=== PATIENT | male | born 1975 | race Caucasian/White ===

== ENCOUNTER 2023-11-08 10:52 | Emergency (ER) | payer OTHER, SELFPAY ==
[2023-11-08 10:58] VITALS: BP 163/103
[2023-11-08 11:13] VITALS: BMI 32.8
[2023-11-08 11:36] LABS: ALT (SGPT) 31 U/L (0-50); AST (SGOT) 24 U/L (17-59); Albumin 4.3 g/dl (3.5-5.0); Alkaline Phosphatase 86 U/L (38-126); Blood Urea Nitrogen 27 mg/dl (9-20); Calcium 9.4 mg/dl (8.4-10.2); Carbon Dioxide 26 mmol/L (22-30); Chloride 104 mmol/L (98-107); Estimated Creatinine Clearance 62 ml/min; Glucose 219 mg/dl (70-99); Potassium 3.9 mmol/L (3.5-5.1); Sodium 135 mmol/L (135-145); Total Bilirubin 0.5 mg/dl (0.2-1.3); Total Protein 7.3 g/dl (6.3-8.2); eGFR 52.82
--- NOTE | 2023-11-08 11:39 | ED.GENMED ---
History of Present Illness
General
Chief Complaint: Flank Pain
Source: patient
Exam Limitations: none
Time Seen by Provider: 11/08/23 11:34
Travel History
Have you had any contact with someone who has COVID-19?: No
Do you have any symptoms of coronavirus? Fever > 100 degrees, chills, cough, shortness of breath, sore throat, loss of taste or smell, muscle aches, or headache?: No
History of Present Illness
History of Present Illness:
See MDM
Past History
Past History
ED Past Medical History: HTN
ED Past Surgical History: None
Social History
Tobacco: Non-smoker
Alcohol: None
Drug: None
Personal:
Living: with family
Employment: Employed
Family History
Family History: Negative Diabetes, Hypertension or CAD
Phy Exam
Physical Exam
Physical Exam:
See MDM
Course
Orders/Labs/Results
Orders:
Orders
11/08/23 11:14
Complete Blood Count/With Diff Urgent
Comprehensive Metabolic Panel Urgent
Urinalysis Reflex To Culture Urgent
Date Specimen was Collected: 11/08/23
Time Specimen was Collected: 11:09
11/08/23 11:38
HYDROmorphone [Dilaudid] 1 mg IV NOW STA
Ketorolac [Toradol] 30 mg IV NOW STA
Ondansetron Injectable [Zofran] 4 mg IV NOW STA
11/08/23 11:39
CT Abd/pel Without Iv Or Oral Urgent
Comment:
Reason For Exam: R flank pain
Abnormal Lab Results
11/08/23
11:14
WBC 13.3 H 10^3/uL
(4.8-10.8)
MPV 11.2 H fL
(7.4-10.4)
Abs Immat Gran (auto) 0.1 H 10^3/uL
(0-0.05)
Absolute Neuts (auto) 8.8 H 10^3/uL
(1.4-6.5)
Absolute Monos (auto) 1.3 H 10^3/uL
(0.1-0.6)
Monocytes % 9.5 H %
(1.7-9.3)
BUN 27 H mg/dl
(9-20)
Creatinine 1.6 H mg/dL
(0.7-1.3)
Glucose 219 H mg/dl
(70-99)
Urine Glucose 3+ A
(Negative)
11/08/23 11:14
11/08/23 11:14
Vital Signs
Initial and Last Documented VS:
Initial Vital Signs
Temp Pulse Resp BP Pulse Ox
97.9 F 76 18 163/103 98
11/08/23 10:58 11/08/23 10:58 11/08/23 10:58 11/08/23 10:58 11/08/23 10:58
Last Documented Vital Signs
Temp Pulse Resp BP Pulse Ox
97.9 F 76 18 142/78 97
11/08/23 10:58 11/08/23 10:58 11/08/23 10:58 11/08/23 12:00 11/08/23 13:15
MDM/Problems Addressed
Differential Diagnosis Includes:
HPI and MDM Narrative:
47-year-old male presenting with right flank pain since yesterday. Patient denies prior history of kidney stone. He has a sensation to urinate. When into the room, patient is hunched over and uncomfortable. He has tenderness to right flank. No
rash. Will give IV pain medicine obtain CT rule out kidney stone
Physical exam
General: Uncomfortable
HEENT: protecting airway
Neck: appears supple
CV: No evidence of cyanosis
Resp: No accessory muscle use
Abd: Non-distended. Right flank pain
Extremities: No deformities
Neuro: alert
Psych: Normal affect
Skin: Intact
Problems Addressed including Acute and Chronic Conditions affecting care:
1. Flank pain
Acuity: acute
Prognosis: stable
Details: Given history and exam, there is clinical concern for obstructive kidney stone. Will obtain CT. Patient given IV pain medicine
2. Hyperglycemia
Acuity: acute
Prognosis: stable
Details: Discussed follow-up with PCP for better blood pressure control
Updates
On reassessment, patient feeling much better. CT consistent with 3 mm right distal ureteral stone. Patient given strainer. Discussed follow-up with urology and patient prescribed pain medicine. Discussed his elevated creatinine and blood sugar
and discussed FOLLOW-up with PCP
Differential Diagnosis (but not limited to): Pyelonephritis, obstructive kidney stone
Testing considered: Renal ultrasound
Drug therapy (if applicable): OTC meds, please see d/c instruction regarding Rx drugs
Amount and/or Complexity of Data Reviewed
Clinical info obtained from: Patient
External data reviewed: N/A
Labs I independently reviewed (but not limited to): Creatinine 1.6
Radiology: The CT scan was personally and independently reviewed. In addition, official CT report reviewed.
Pulse Ox: not hypoxic
EKG independently reviewed: N/A
Sales Account Executive: N/A
Critical Care: N/A
Risk of Complication:
Social Determinants of health: Good social support
Discussed with other providers: N/A
Escalation of Care includes Admit/Obs: After being observed in the Emergency Department, pt stable for discharge.
Occasional wrong word or 'sound a like' substitutions may have occurred due to the inherent limitations of voice recognition software. Read the chart carefully and recognize, using context, where substitutions have occurred.
*Critical Care Note
Total Time (30-74mins, 75-104mins- exclusive of procedures): Not Applicable
ED Attending Note
-
Portions of this chart may have been created with voice recognition software.� Occasional wrong word or��sound alike� substitutions may have occurred due to the inherent limitations of voice recognition software.
Discharge Plan
Departure
Patient Disposition: Home (Routine Discharge)
Date of Disposition: 11/08/23
Time of Disposition: 13:45
Patient with high blood pressure during this ER visit?: Yes
Discharge Problem:
Kidney stone on right side, Hyperglycemia
Instructions: Kidney Stones (DC), How to Strain Your Urine, BLOOD PRESSURE
Prescriptions:
New
tamsulosin [Flomax] 0.4 mg Capsule
0.4 mg PO DAILY Qty: 14 0RF
diclofenac potassium 50 mg tablet
50 mg PO BID Qty: 20 0RF
ondansetron 4 mg Tablet,Disintegrating
4 mg PO BIDPRN PRN (Reason: nausea/vomiting) Qty: 10 0RF
oxycodone 5 mg tablet
5 mg PO Q8H PRN (Reason: Pain) Qty: 14 0RF
No Action
alprazolam 0.5 MG tablet
0.5 mg PO Q12H PRN (Reason: anxiety)
sertraline 50 MG tablet
50 mg PO DAILY
pantoprazole 40 MG tablet,delayed release (DR/EC)
40 mg PO DAILY Qty: 20 0RF
ibuprofen 200 MG tablet
800 mg PO NOW
tamsulosin 0.4 MG capsule
0.4 mg PO DAILY Qty: 7 0RF
oxycodone-acetaminophen 5 MG/325 MG tablet
1 tab PO Q4HPRN PRN (Reason: pain) Qty: 10 0RF
Referrals:
Eliel Friedman MD [Family Provider] -
Franklin Ray MD [Active] -
Activity Restrictions/Additional Instructions:
Please return for any worsening symptoms.
You may return at any time if you have further concerns.
Please follow up with your doctor at the first available appointment, preferably this week. Please discuss your elevated blood pressure, your elevated kidney levels and your elevated blood sugar.
Please follow-up with the urologist.
Thank you for choosing [facility].
Interventions
Interventions:
*Risk Screen - Suicide Last Done: 11/08/23 11:11
*General Assessment Last Done: 11/08/23 11:11
*Neglect/Abuse Screening Last Done: 11/08/23 11:11
ED- Fall Risk Assessment Last Done: 11/08/23 11:11
*ED COVID-19 Vaccine History Last Done: 11/08/23 10:58
HD-Mlskif-Iyzbaxqslt Assessment Last Done: 11/08/23 11:11
ED-Male Genitourinary Assessment Last Done: 11/08/23 11:11
[2023-11-08] MEDS: ZOFRAN 4 MG IV (11:46)
[2023-11-08] MEDS: DILAUDID 1 MG IV (11:46)
[2023-11-08] MEDS: TORADOL 30 MG IV (11:46)
[2023-11-08 11:48] VITALS: BP 148/96
[2023-11-08 11:54] LABS: % Basophils 0.5 % (0-2); % Eosinophils 2.9 % (0-6); % Immature Granulocytes 0.5 % (0-0.5); % Lymphocytes 20.7 % (20.5-51.1); % Monocytes 9.5 % (1.7-9.3); % Neutrophils 65.9 % (42.2-75.2); Absolute Basophils 0.1 10^3/uL (0-0.2); Absolute Eosinophils 0.4 10^3/uL (0-0.7); Absolute Immature Granulocytes 0.1 10^3/uL (0-0.05); Absolute Lymphocytes 2.8 10^3/uL (1.2-3.4); Absolute Monocytes 1.3 10^3/uL (0.1-0.6); Absolute Neutrophils 8.8 10^3/uL (1.4-6.5); Hematocrit 45.6 % (39.0-52.0); Hemoglobin 15.6 g/dL (13.0-18.0); Mean Corp Hgb Conc. 34.2 g/dL (33.0-37.0); Mean Corpuscular Hgb 30.8 pg (27.0-31.0); Mean Corpuscular Volume 90.1 fL (80.0-94.0); Mean Platelet Volume 11.2 fL (7.4-10.4); Nucleated Red Blood Cells % 0 % (-); Platelet Count 166 10^3/uL (130-400); Red Blood Cell Count 5.06 10^6/uL (4.70-6.10); Red Cell Dist. Width 13.7 % (11.5-14.5); White Blood Cell Count 13.3 10^3/uL (4.8-10.8)
[2023-11-08 12:00] VITALS: BP 142/78
[2023-11-08 12:09] LABS: Urine Albumin Negative (Neg - Trace); Urine Bilirubin Negative (Negative); Urine Character Clear (Clear); Urine Color Yellow; Urine Glucose 3+ (Negative); Urine Ketone Negative (Negative); Urine Leukocyte Negative (Negative); Urine Nitrite Negative (Negative); Urine Occult Blood Negative (Negative); Urine Urobilinogen Negative (Neg - 1+)
== END 2023-11-08 14:02 | disposition home or self-care (01) ==
LOC: EMR 10:52
PROVIDERS: EMERGENCY PHYSICIAN Student in an Organized Health Care Education/Training Program; FAMILY PHYSICIAN Family Medicine
DX: N13.2 Hydronephrosis with renal and ureteral calculous obstruction (principal); R73.9 Hyperglycemia, unspecified
CPT/HCPCS: 99285; 96374; 96375 ×2; 74176; 80053; 81003; 85025

== ENCOUNTER 2023-11-12 10:23 | Emergency (ER) | payer OTHER, SELFPAY ==
[2023-11-12 10:25] VITALS: BP 142/102
[2023-11-12] MEDS: DILAUDID 1 MG IV ×2 (11:18→12:42)
[2023-11-12] MEDS: ZOFRAN 4 MG IV (11:18)
[2023-11-12] MEDS: NSS 1000 IV (11:19)
[2023-11-12 11:23] LABS: % Basophils 0.6 % (0-2); % Eosinophils 3.3 % (0-6); % Immature Granulocytes 0.7 % (0-0.5); % Lymphocytes 15.9 % (20.5-51.1); % Monocytes 9.7 % (1.7-9.3); % Neutrophils 69.8 % (42.2-75.2); Absolute Basophils 0.1 10^3/uL (0-0.2); Absolute Eosinophils 0.4 10^3/uL (0-0.7); Absolute Immature Granulocytes 0.1 10^3/uL (0-0.05); Absolute Lymphocytes 1.7 10^3/uL (1.2-3.4); Absolute Neutrophils 7.5 10^3/uL (1.4-6.5); Hematocrit 43.4 % (39.0-52.0); Hemoglobin 14.9 g/dL (13.0-18.0); Mean Corp Hgb Conc. 34.3 g/dL (33.0-37.0); Mean Corpuscular Hgb 31.1 pg (27.0-31.0); Mean Corpuscular Volume 90.6 fL (80.0-94.0); Mean Platelet Volume 10.7 fL (7.4-10.4); Nucleated Red Blood Cells % 0 % (-); Platelet Count 144 10^3/uL (130-400); Red Blood Cell Count 4.79 10^6/uL (4.70-6.10); Red Cell Dist. Width 13.2 % (11.5-14.5); White Blood Cell Count 10.8 10^3/uL (4.8-10.8)
[2023-11-12 11:24] VITALS: BP 133/86
--- NOTE | 2023-11-12 11:30 | ED.GENMED ---
History of Present Illness
General
Chief Complaint: Flank Pain
Source: patient, records, previous radiology exam and previous hospital records
Exam Limitations: none
Time Seen by Provider: 11/12/23 10:45
Nursing documentation reviewed up to this point in time: agreed with
Travel History
Have you had any contact with someone who has COVID-19?: No
Do you have any symptoms of coronavirus? Fever > 100 degrees, chills, cough, shortness of breath, sore throat, loss of taste or smell, muscle aches, or headache?: No
History of Present Illness
History of Present Illness:
47-year-old male presents with right flank pain with nausea history of kidney stones recently diagnosed with his first stone in the ER 3 mm distal stone he thinks he passed that on Friday 24 hours later pain returned he has no fever did have
nausea no vomiting pain is in the right flank and the right lower abdomen
Past History
Past History
ED Past Medical History: HTN
ED Past Surgical History: None
Social History
Tobacco: Non-smoker
Alcohol: None
Drug: None
Personal:
Living: with family
Employment: Employed
Family History
Family History: Negative Diabetes, Hypertension or CAD
Review of Systems
Review of Systems
All Other Systems: Not applicable
Constitutional: Reports no symptoms; Denies fever or fatigue
Respiratory: Reports no symptoms
Cardiac: Reports no symptoms
ABD/GI: Reports nausea; Denies vomiting
: Reports flank pain
Musculoskeletal: Reports no symptoms
Skin: Reports no symptoms
Endocrine: Reports no symptoms
Hematologic/Lymphatic: Reports no symptoms
Phy Exam
Physical Exam
Physical Exam:
Physical Exam
General: no apparent distress, not acutely ill
Neck: No jaundice
Heart: s1/s2 regular rate and rhythm, no murmur. equal radial pulses.
Lungs: no acute respiratory distress. clear bilaterally
Abdomen: Soft mild tenderness in the right flank and right lower abdomen
Neuro: alert and oriented. no focal neurological deficits
Skin: no rash
Psychiatric: well kept. interactive and cooperative
Extremities: no edema.
Course
Orders/Labs/Results
Orders:
Orders
11/12/23 10:45
Urinalysis Reflex To Culture Urgent
0.9% Sodium Chloride 1000 ml [Nss] 1,000 ml IV BOLUS
HYDROmorphone [Dilaudid] 1 mg IV NOW STA
Ondansetron Injectable [Zofran] 4 mg IV NOW STA
11/12/23 11:13
Complete Blood Count/With Diff Urgent
Comprehensive Metabolic Panel Urgent
11/12/23 11:29
Abdomen Xray - 1 View [CR Abdomen - 1 View] Urgent
Comment:
Reason For Exam: Right flank pain history of kidney stone
Vital Signs
Initial and Last Documented VS:
Initial Vital Signs
Temp Pulse Resp BP Pulse Ox
97.8 F 82 20 142/102 98
11/12/23 10:25 11/12/23 10:25 11/12/23 10:25 11/12/23 10:25 11/12/23 10:25
Last Documented Vital Signs
Temp Pulse Resp BP Pulse Ox
97.8 F 82 20 142/102 98
11/12/23 10:25 11/12/23 10:25 11/12/23 10:25 11/12/23 10:25 11/12/23 10:25
MDM/Problems Addressed
Differential Diagnosis Includes:
UTI stone perhaps passed stone with second stone may be never passed the first stone doubt appendicitis
MDM/Problems Addressed:
Flank pain
*Radiology
Radiology exam reviewed: preliminary read by ED provider
*Pulse Oximetry
Patient hypoxic: no
*Critical Care Note
Total Time (30-74mins, 75-104mins- exclusive of procedures): Not Applicable
Data Reviewed
Review of Other/Old Records Reveals: Radiology Studies (Reviewed imaging reports no note of any renal stones per se just a ureteral stone)
Source: patient, spouse and family
ED Attending Note
-
Portions of this chart may have been created with voice recognition software.� Occasional wrong word or��sound alike� substitutions may have occurred due to the inherent limitations of voice recognition software.
Discharge Plan
Departure
Prescriptions:
No Action
alprazolam 0.5 MG tablet
0.5 mg PO Q12H PRN (Reason: anxiety)
sertraline 50 MG tablet
50 mg PO DAILY
pantoprazole 40 MG tablet,delayed release (DR/EC)
40 mg PO DAILY Qty: 20 0RF
ibuprofen 200 MG tablet
800 mg PO NOW
tamsulosin 0.4 MG capsule
0.4 mg PO DAILY Qty: 7 0RF
oxycodone-acetaminophen 5 MG/325 MG tablet
1 tab PO Q4HPRN PRN (Reason: pain) Qty: 10 0RF
tamsulosin [Flomax] 0.4 mg Capsule
0.4 mg PO DAILY Qty: 14 0RF
diclofenac potassium 50 mg tablet
50 mg PO BID Qty: 20 0RF
ondansetron 4 mg Tablet,Disintegrating
4 mg PO BIDPRN PRN (Reason: nausea/vomiting) Qty: 10 0RF
oxycodone 5 mg tablet
5 mg PO Q8H PRN (Reason: Pain) Qty: 14 0RF
Referrals:
Eliel Friedman MD [Family Provider] -
Interventions
Interventions:
*Risk Screen - Suicide Last Done: 11/12/23 11:24
*General Assessment Last Done: 11/12/23 11:24
*Neglect/Abuse Screening Last Done: 11/12/23 11:24
*ED COVID-19 Vaccine History Last Done: 11/12/23 10:25
FX-Ywexyn-Vewysdhbgd Assessment Last Done: 11/12/23 11:24
ED-Male Genitourinary Assessment Last Done: 11/12/23 11:24
[2023-11-12 11:38] LABS: ALT (SGPT) 37 U/L (0-50); AST (SGOT) 32 U/L (17-59); Albumin 3.9 g/dl (3.5-5.0); Alkaline Phosphatase 96 U/L (38-126); Blood Urea Nitrogen 30 mg/dl (9-20); Calcium 9.1 mg/dl (8.4-10.2); Carbon Dioxide 20 mmol/L (22-30); Chloride 109 mmol/L (98-107); Glucose 119 mg/dl (70-99); Potassium 4.6 mmol/L (3.5-5.1); Sodium 135 mmol/L (135-145); Total Bilirubin 0.6 mg/dl (0.2-1.3); Total Protein 6.9 g/dl (6.3-8.2); eGFR > 60.00
[2023-11-12 12:00] VITALS: BP 133/76
[2023-11-12 12:44] VITALS: BP 135/80
[2023-11-12 13:00] VITALS: BP 124/82
[2023-11-12 13:17] LABS: Urine Albumin Negative (Neg - Trace); Urine Bilirubin Negative (Negative); Urine Character Clear (Clear); Urine Color Yellow; Urine Glucose Negative (Negative); Urine Ketone Negative (Negative); Urine Leukocyte Trace (Negative); Urine Nitrite Negative (Negative); Urine Occult Blood Negative (Negative); Urine Urobilinogen Negative (Neg - 1+)
[2023-11-12] MEDS: TORADOL 30 MG IV (14:15)
[2023-11-12 14:33] LABS: Urine Red Blood Cell None Seen /HPF (0-2); Urine White Cell 0-2 /HPF (0-5)
[2023-11-12 15:17] VITALS: BP 130/87
== END 2023-11-12 15:25 | disposition home or self-care (01) ==
LOC: EMR 10:23
PROVIDERS: EMERGENCY PHYSICIAN Emergency Medicine; FAMILY PHYSICIAN Family Medicine
DX: N20.0 Calculus of kidney (principal); I10 Essential (primary) hypertension; Z87.442 Personal history of urinary calculi
CPT/HCPCS: 99284; 96374; 96375; 96376; 96361; 74018; 74176; 80053; 81003; 81015; 85025

== ENCOUNTER → 2024-12-14 06:57 | Outpatient (REF) | payer OTHER, SELFPAY | LOC: HWRAD 06:57 | PROVIDERS: ATTENDING PHYSICIAN Hospitalist; FAMILY PHYSICIAN Family Medicine | DX: M10.9 Gout, unspecified (principal) | CPT/HCPCS: 73630 ==

== ENCOUNTER 2025-03-25 06:37 | Day surgery (SDC) | payer OTHER, SELFPAY ==
[2025-03-25 07:43] LABS: Glucose - Point of Care 109 mg/dl (70-99)
== END 2025-03-25 10:08 | disposition home or self-care (01) ==
LOC: GI 06:37
PROVIDERS: ATTENDING PHYSICIAN Internal Medicine Gastroenterology
DX: Z12.11 Encounter for screening for malignant neoplasm of colon (principal); C18.7 Malignant neoplasm of sigmoid colon; D12.3 Benign neoplasm of transverse colon; D12.4 Benign neoplasm of descending colon; K62.1 Rectal polyp; K64.8 Other hemorrhoids
CPT/HCPCS: 45385; 45380; 88305; 82962; 88342

== ENCOUNTER 2025-04-04 06:24 | Day surgery (SDC) | payer OTHER, SELFPAY ==
[2025-04-04 08:45] LABS: Glucose - Point of Care 118 mg/dl (70-99)
== END 2025-04-04 10:59 | disposition home or self-care (01) ==
LOC: GI 06:24
PROVIDERS: ATTENDING PHYSICIAN Internal Medicine Gastroenterology
DX: Z08 Encounter for follow-up examination after completed treatment for malignant neoplasm (principal); Z85.038 Personal history of other malignant neoplasm of large intestine; Z86.0100 Personal history of colon polyps, unspecified; Z53.8 Procedure and treatment not carried out for other reasons
CPT/HCPCS: 45378; 82962

== ENCOUNTER → 2025-04-07 06:18 | Outpatient (REF) | payer OTHER, SELFPAY | LOC: RAD 06:18 | PROVIDERS: ATTENDING PHYSICIAN Internal Medicine Gastroenterology; FAMILY PHYSICIAN Family Medicine | DX: C18.7 Malignant neoplasm of sigmoid colon (principal) | CPT/HCPCS: 71260; 74177; Q9967 ==

== ENCOUNTER 2025-04-14 06:24 | Day surgery (SDC) | payer OTHER, SELFPAY ==
[2025-04-14 09:48] LABS: Glucose - Point of Care 107 mg/dl (70-99)
== END 2025-04-14 11:48 | disposition home or self-care (01) ==
LOC: GI 06:24
PROVIDERS: ATTENDING PHYSICIAN Internal Medicine Gastroenterology
DX: Z08 Encounter for follow-up examination after completed treatment for malignant neoplasm (principal); Z85.038 Personal history of other malignant neoplasm of large intestine; K64.8 Other hemorrhoids; Z98.890 Other specified postprocedural states
CPT/HCPCS: 45381; 82962